=== PATIENT | female | born 1960 | race African-American/Black ===

== ENCOUNTER 2018-04-20 00:51 | Emergency (ER) | payer MEDICARE, OTHER ==
[2018-04-20] MEDS ORDERED: LORAZEPAM 2 MG INJ (00:57)
[2018-04-20] MEDS ORDERED: HALOPERIDOL 5 MG INJ (00:57)
[2018-04-20] MEDS: HALOPERIDOL 5 MG INJ IM (01:00)
[2018-04-20] MEDS: SOD CHLORIDE 0.9% 1,000 ML IV (01:38)
[2018-04-20] MEDS: LORAZEPAM 2 MG INJ IM (01:50)
[2018-04-20] MEDS: LORAZEPAM 2 MG INJ IV (05:54)
== END 2018-04-20 12:10 | disposition home or self-care (01) ==
LOC: E/R 00:51
DX: F15.10 Other stimulant abuse, uncomplicated (principal); F10.121 Alcohol abuse with intoxication delirium; I10 Essential (primary) hypertension; F17.210 Nicotine dependence, cigarettes, uncomplicated
CPT/HCPCS: 36415; 80307; 96372; 96374; 99284-25

== ENCOUNTER 2019-02-11 12:22 | Emergency (ER) | payer MEDICARE, OTHER ==
[2019-02-11] MEDS: LORAZEPAM 2 MG INJ IM (12:33)
[2019-02-11] MEDS: HALOPERIDOL 5 MG INJ IM (12:33)
[2019-02-11] MEDS: DIPHENHYDRAMINE 50 MG INJ IM (13:00)
[2019-02-11 13:16] LABS: ADD MAN DIFF? NO
[2019-02-11] MEDS: OLANZAPINE 10 MG VIAL IM (13:20)
[2019-02-11 13:23] LABS: BASOPHIL # 0.1 10^3/ul (0.0-0.1); BASOPHILS % 0.5 % (0.0-2.0); EOSINOPHILS # 0.1 10^3/ul (0.0-0.5); EOSINOPHILS % 0.5 % (0.0-7.0); HEMATOCRIT 41.6 % (37.0-47.0); HEMOGLOBIN 13.8 g/dl (12.0-16.0); LYMPHOCYTES # 2.1 10^3/ul (0.8-2.9); LYMPHOCYTES % 22.4 % (15.0-51.0); MEAN CORPUSCULAR HEMOGLOBIN 29.9 pg (29.0-33.0); MEAN CORPUSCULAR HGB CONC 33.2 g/dl (32.0-37.0); MEAN CORPUSCULAR VOLUME 90.2 fl (82.0-101.0); MEAN PLATELET VOLUME 8.8 fl (7.4-10.4); MONOCYTE # 0.4 10^3/ul (0.3-0.9); MONOCYTES % 4.3 % (0.0-11.0); NEUTROPHIL # 6.7 10^3/ul (1.6-7.5); NEUTROPHILS % 71.8 % (39.0-77.0); PLATELET COUNT 338 10^3/UL (140-415); RED BLOOD COUNT 4.61 10^6/ul (4.20-5.40); RED CELL DISTRIBUTION WIDTH 14.3 % (11.5-14.5)
[2019-02-11 13:23] LABS: WHITE BLOOD COUNT 9.4 10^3/ul (4.8-10.8)
[2019-02-11 13:42] LABS: INR 0.89; PROTIME 12.1 Sec (11.9-14.9); PT RATIO 0.9
[2019-02-11 13:43] LABS: PARTIAL THROMBOPLASTIN TIME 22.2 Sec (23.0-35.0)
[2019-02-11 13:48] LABS: ALANINE AMINOTRANSFERASE 20 IU/L (13-69); ALBUMIN 4.1 g/dl (3.3-4.9); ALBUMIN/GLOBULIN RATIO 1.24; ALKALINE PHOSPHATASE 123 IU/L (42-121); ANION GAP 16 (5-13); ASPARTATE AMINO TRANSFERASE 33 IU/L (15-46); BILIRUBIN,INDIRECT 0.1 mg/dl (0-1.1); BILIRUBIN,TOTAL 0.1 mg/dl (0.2-1.3); BLOOD UREA NITROGEN 18 mg/dl (7-20); CALCIUM 9.3 mg/dl (8.4-10.2); CARBON DIOXIDE 22 mmol/L (21-31); CHLORIDE 108 mmol/L (97-110); CREATININE 1.29 mg/dl (0.44-1.00); Estimated GFR 51 mL/min (>60); GLUCOSE 105 mg/dl (70-220); POTASSIUM 3.3 mmol/L (3.5-5.1); SODIUM 146 mmol/L (135-144); TOTAL PROTEIN 7.4 g/dl (6.1-8.1)
[2019-02-11 13:53] LABS: ACETAMINOPHEN < 10.0 ug/ml (10.0-30.0); SALICYLATE < 1.0 mg/dl (5.0-30.0)
[2019-02-11 14:26] LABS: ADD UMIC NO; UR ASCORBIC ACID NEGATIVE (NEGATIVE); UR BILIRUBIN (Dip) NEGATIVE (NEGATIVE); UR BLOOD (Dip) NEGATIVE (NEGATIVE); UR CLARITY CLEAR (CLEAR); UR COLOR YELLOW (YELLOW); UR GLUCOSE (Dip) NEGATIVE (NEGATIVE); UR KETONES (Dip) NEGATIVE (NEGATIVE); UR LEUKOCYTE ESTERASE (Dip) NEGATIVE Leu/ul (NEGATIVE); UR NITRITE (Dip) NEGATIVE (NEGATIVE); UR SPECIFIC GRAVITY (Dip) 1.011 (1.003-1.030); UR TOTAL PROTEIN (Dip) NEGATIVE (NEGATIVE); UR UROBILINOGEN (Dip) NEGATIVE (NEGATIVE)
[2019-02-11 14:47] LABS: AMPHETAMINE/METHAMPHETAMINE Negative (NEGATIVE); BARBITURATES Negative (NEGATIVE); BENZODIAZEPINES Negative (NEGATIVE); CANNABINOIDS Positive (NEGATIVE); COCAINE Negative (NEGATIVE); OPIATES Negative (NEGATIVE)
[2019-02-11] MEDS: SOD CHLORIDE 0.9% 1,000 ML IV (17:16)
== END 2019-02-11 21:46 | disposition home or self-care (01) ==
LOC: E/R 12:22
DX: F29 Unspecified psychosis not due to a substance or known physiological condition (principal); I10 Essential (primary) hypertension; F10.920 Alcohol use, unspecified with intoxication, uncomplicated; R94.02 Abnormal brain scan
CPT/HCPCS: 70450; 71045; 80053; 80307; 81003; 85025; 85610; 85730; 96372; 99285-25

== ENCOUNTER 2019-04-04 05:15 | Emergency (ER) | payer MEDICARE, OTHER ==
[2019-04-04] MEDS: predniSONE 20 MG TAB PO (06:27)
[2019-04-04] MEDS: FAMOTIDINE 20 MG TAB PO (06:27)
== END 2019-04-04 07:13 | disposition home or self-care (01) ==
LOC: FTE 07:13
DX: R22.0 Localized swelling, mass and lump, head (principal); I10 Essential (primary) hypertension; F17.210 Nicotine dependence, cigarettes, uncomplicated
CPT/HCPCS: 99283